=== PATIENT | male | born 1995 | race American Indian/Alaskan Native ===

== ENCOUNTER 2018-02-14 09:43 | Emergency (ER) | payer OTHER ==
[2018-02-14 10:00] VITALS: BP 119/85
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
== END 2018-02-14 11:56 | disposition home or self-care (01) ==
LOC: ED 09:43
DX: Z04.6 Encounter for general psychiatric examination, requested by authority (principal); F17.200 Nicotine dependence, unspecified, uncomplicated; Z98.890 Other specified postprocedural states
CPT/HCPCS: 99282

== ENCOUNTER 2020-03-12 14:58 | Emergency (ER) | payer OTHER ==
[2020-03-12 15:04] VITALS: BP 131/74
--- NOTE | 2020-03-12 15:17 | Emergency Department Report ---
Chief Complaint: Dental/Oral Stated Complaint: BLURRED VISION Time Seen by Provider: 03/12/20 15:14 - HPI History of Present Illness: Patient is a 24-year-old male presents emergency room with complaints of pain in his right upper wisdom tooth that has been occurring for the last few days. He states that he cracked the tooth a while ago. He denies any facial swelling, difficulty swallowing, difficulty breathing, fever, chills, nausea, vomiting. He states that he has an appointment with a dentist on 03/21/2020. Patient also presents for blurred vision in the left eye which has been occurring since April 2019. He was previously seeing a patient liaison in [place] multiple times throughout 2019. He has not yet seen a patient liaison in [place]. He states he has been on multiple eyedrops throughout 2019. This is a chronic condition and he has had no acute change in this condition. He denies anything getting into the eye, eye redness, eye drainage, eye pain. Vitals are stable On exam: Non toxic appearing, no acute distress atraumatic, normocephalic EOMI, no periorbital edema or ecchymosis or erythema moist mucus membranes, normal oropharynx, there is a dental carry present to the right wisdom tooth with a large hole present, there is no edema or induration of the gumline, no facial edema, uvula is midline, no uvular edema or deviation, no trismus, no tongue elevation, no muffled voice A&O x4, no focal neuro deficit skin is warm, dry, intact Patient is presenting for dental pain and dental carry No signs of dental abscess, infected dental carry, facial cellulitis, facial abscess, Ludwigs at this time Patient is also presenting for chronic left eye blurriness which she has been seeing an patient liaison for, he has had no acute change Patient already has an upcoming appointment with a dentist Discussed supportive care and symptomatic treatment Patient will be referred to an patient liaison due to his chronic eye condition Discussed very strict return precautions in detail with patient Medical screening examination performed and there is no threat to life or limb at this time - Exam Vital Signs: Vital Signs 03/12/20 15:02 Temperature 98.5 F Pulse Rate 95 H Respiratory 18 Rate Blood Pressure 131/74 O2 Sat by Pulse 99 Oximetry MSE screening note: Focused history and physical exam performed. ED Disposition for MSE Clinical Impression: Dental caries, Blurred vision, left eye Disposition: Z-07 MED SCREENING EXAM-LEFT Is pt being admited?: No Does the pt Need Aspirin: No Condition: Stable Instructions: Blurred Vision, Adult Additional Instructions: please follow up with an patient liaison. please follow up with your dentist. may alternate tylenol or ibuprofen as needed for discomfort. may gargle with warm salt water. use orajel over the counter. return to the emergency room for any new or worsening symptoms. Referrals: your, dentist [Other] - 2-3 Days [facility] [Provider Group] - [facility]LI Time of Disposition: 15:15 Print Language: URUGUAYAN
== END 2020-03-12 15:32 | disposition left against medical advice (07) ==
LOC: ED 14:58
DX: H53.8 Other visual disturbances (principal); Z53.21 Procedure and treatment not carried out due to patient leaving prior to being seen by health care provider